=== PATIENT | female | born 1990 | race Caucasian/White ===

== ENCOUNTER 2017-01-14 17:20 | Emergency (ER) | payer OTHER ==
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
[2017-01-14 17:36] VITALS: BP 136/79; PULSE 78; RESP 16; TEMP 97.9; O2SAT 96
[2017-01-14] MEDS ORDERED: CEFTRIAXONE IM 350 MG/ML SYRINGE IM ONE (18:34)
[2017-01-14] MEDS ORDERED: AZITHROMYCIN 250 MG TAB PO ONE (18:34)
== END 2017-01-14 20:40 | disposition home or self-care (01) ==
LOC: EEVIPCON 17:20
DX: T74.21XA Adult sexual abuse, confirmed, initial encounter (principal); Y07.59 Other non-family member, perpetrator of maltreatment and neglect; Y92.039 Unspecified place in apartment as the place of occurrence of the external cause
CPT/HCPCS: J0696